=== PATIENT | female | born 1995 | race Two or more races ===

== ENCOUNTER → 2017-04-12 | Outpatient (REF) | payer OTHER | LOC: M SFHCLERA 17:27 | PROVIDERS: ATTEND Nurse Practitioner Family | DX: R30.0 Dysuria (principal) ==

== ENCOUNTER → 2017-04-21 | Outpatient (REF) | payer OTHER | LOC: M SFHCLERA 17:26 | PROVIDERS: ATTEND Physician Assistant | DX: R30.0 Dysuria (principal) ==

== ENCOUNTER → 2017-07-01 | Outpatient (REF) | payer OTHER | LOC: M SFHCLERA 17:40 | DX: J02.9 Acute pharyngitis, unspecified (principal) ==

== ENCOUNTER → 2017-12-19 | Outpatient (REF) | payer OTHER | LOC: M SFHCLERA 09:58 | DX: R30.0 Dysuria (principal) ==

== ENCOUNTER 2017-12-31 16:30 | Day surgery (SDC) | payer OTHER ==
[2017-12-31] MEDS ORDERED: ONDANSETRON 4MG/2ML VIAL (J2405) As Ordered (17:05)
[2017-12-31] MEDS ORDERED: KETOROLAC 60 MG/2 ML VIAL (J1885) As Ordered (17:05)
[2017-12-31] MEDS ORDERED: LIDOCAINE 2% INJ 100 MG/5 ML SDV (FOR ANES.) As Ordered (17:05)
[2017-12-31] MEDS ORDERED: dexameTHASONE 4 MG/ML 1ML VIAL (J1100) As Ordered (17:05)
[2017-12-31] MEDS ORDERED: PROPOFOL 200 MG/20 ML VIAL As Ordered (17:05)
[2017-12-31] MEDS ORDERED: MIDAZOLAM INJ 2 MG/2 ML VIAL (J2250) As Ordered (17:06)
[2017-12-31] MEDS ORDERED: fentaNYL 100 MCG/2 ML INJECTION (J3010) As Ordered ×2 (17:06→19:29)
[2017-12-31] MEDS ORDERED: LR 1,000 ML IV ×2 (17:15→19:45)
[2017-12-31] MEDS ORDERED: ACETAMINOPHEN 650 MG SUPP PR (17:15)
[2017-12-31] MEDS: NS 1,000 ML IV (17:20)
[2017-12-31 17:32] LABS: HEMATOCRIT 35.8 % (36.0-47.0); MEAN CORPUSCULAR HGB CONC 33.5 g/dl (32.0-36.5); MEAN CORPUSCULAR VOLUME 86.5 fl (80.0-96.0); PLATELET COUNT, AUTOMATED 229 10^3/uL (150-450); RED BLOOD COUNT 4.14 10^6/uL (4.00-5.40); RED CELL DISTRIBUTION WIDTH 12.8 % (11.5-14.5)
[2017-12-31 18:16] LABS: ANION GAP 9 MEQ/L (8-16); BLOOD UREA NITROGEN 8 MG/DL (7-18); CALCIUM LEVEL 8.7 MG/DL (8.5-10.1); CARBON DIOXIDE LEVEL 26 MEQ/L (21-32); CHLORIDE LEVEL 105 MEQ/L (98-107); CREATININE FOR GFR 0.46 MG/DL (0.55-1.30); GLUCOSE, FASTING 86 MG/DL (70-100); HCG, SERUM QUANTITATIVE 4519 MIU/ML; POTASSIUM SERUM 3.8 MEQ/L (3.5-5.1); SODIUM LEVEL 140 MEQ/L (136-145)
[2017-12-31] MEDS: VANCOMYCIN HCL 1,000 MG, VIAL MATE ADAPTER 1 EACH in D5W 250 ML IV (18:20)
[2017-12-31] MEDS ORDERED: SUCCINYLCHOLINE 100 MG/5 ML SYRINGE (J0330) As Ordered (18:46)
[2017-12-31] MEDS ORDERED: ROCURONIUM BROMIDE 50 MG/5 ML VIAL As Ordered (18:46)
[2017-12-31] MEDS ORDERED: ePHEDrine SULFATE 25 MG/5 ML(5MG/ML) SYRINGE As Ordered (18:58)
[2017-12-31] MEDS ORDERED: OXYTOCIN INJ 10 UNITS/ML VIAL (J2590) As Ordered (18:58)
[2017-12-31] MEDS: ACETAMINOPHEN 325 MG SUPP As Ordered (19:01)
[2017-12-31] MEDS ORDERED: METOCLOPRAMIDE INJ 10MG/2ML VIAL (J2765) As Ordered (19:02)
[2017-12-31] MEDS ORDERED: ACETAMINOPHEN 500 MG TAB PO (19:30)
[2017-12-31] MEDS ORDERED: PERCOCET 5MG/325MG TAB As Ordered (19:30)
[2017-12-31] MEDS: fentaNYL 100 MCG/2 ML INJECTION (J3010) IV (19:34)
[2017-12-31] MEDS: PERCOCET 5MG/325MG TAB PO (19:45)
== END 2017-12-31 21:15 | disposition home or self-care (01) ==
LOC: M SDC 16:30
DX: O02.1 Missed abortion (principal); Z88.1 Allergy status to other antibiotic agents; Z88.2 Allergy status to sulfonamides
CPT/HCPCS: 59820

== ENCOUNTER 2018-01-04 20:57 | Emergency (ER) | payer OTHER ==
[2018-01-04 23:57] LABS: BASO % 0.5 % (0.0-1.0); EOS # 0.4 10^3/uL (0.0-0.50); EOS % 5.5 % (0.0-3.0); HEMOGLOBIN 13.2 g/dl (12.0-15.5); IMMATURE GRANULOCYTE % 0.3 % (0-3.0); LYMPH # 3.4 10^3/uL (1.5-6.5); MEAN CORPUSCULAR HEMOGLOBIN 29.2 pg (27.0-33.0); MEAN CORPUSCULAR VOLUME 88.5 fl (80.0-96.0); MONO # 0.3 10^3/uL (0.0-0.8); MONO % 4.3 % (0.0-5.0); NEUTROPHILS # 3.6 10^3/uL (1.8-7.7); NEUTROPHILS % 46.4 % (36.0-66.0); PLATELET COUNT, AUTOMATED 260 10^3/uL (150-450); RED BLOOD COUNT 4.52 10^6/uL (4.00-5.40); RED CELL DISTRIBUTION WIDTH 12.6 % (11.5-14.5); WHITE BLOOD COUNT 7.8 10^3/uL (4.0-10.0)
== END 2018-01-05 02:59 | disposition home or self-care (01) ==
LOC: M ED 20:57
DX: N93.9 Abnormal uterine and vaginal bleeding, unspecified (principal); Z98.890 Other specified postprocedural states; Z88.1 Allergy status to other antibiotic agents; Z88.2 Allergy status to sulfonamides; Z88.8 Allergy status to other drugs, medicaments and biological substances
CPT/HCPCS: 76856

== ENCOUNTER → 2018-02-22 | Outpatient (REF) | payer OTHER | LOC: M SFHCLERA 17:38 | DX: R53.81 Other malaise (principal) ==

== ENCOUNTER 2018-03-29 14:47 | Emergency (ER) | payer OTHER ==
[2018-03-29] MEDS ORDERED: ONDANSETRON 4 MG ORAL DISINTEGRATING TAB (Q0162 PER 1MG) PO (16:45)
[2018-03-29] MEDS ORDERED: NAPROXEN 250 MG TAB PO (16:45)
[2018-03-29] MEDS: IBUPROFEN 600 MG TAB PO (16:47)
[2018-03-29] MEDS: METOCLOPRAMIDE 10 MG TAB PO (16:47)
== END 2018-03-29 17:35 | disposition home or self-care (01) ==
LOC: M ED 14:47
DX: S06.0X0A Concussion without loss of consciousness, initial encounter (principal); S16.1XXA Strain of muscle, fascia and tendon at neck level, initial encounter; V43.52XA Car driver injured in collision with other type car in traffic accident, initial encounter; Y92.410 Unspecified street and highway as the place of occurrence of the external cause; Z88.1 Allergy status to other antibiotic agents; Z88.2 Allergy status to sulfonamides; Z88.6 Allergy status to analgesic agent
CPT/HCPCS: 70450

== ENCOUNTER 2019-06-17 18:55 | Outpatient (CLI) | payer OTHER ==
[~2019-06-17] VITALS: Ht 160 cm; Wt 73.1 kg
[~2019-06-17 18:55] MED LIST: REGL10TA6 PO; ROBA500T PO
[2019-06-17 19:14] VITALS: BP 119/74
[2019-06-17 21:48] VITALS: BP 128/68
--- NOTE | 2019-06-17 21:54 | IPNPDOC ---
Text Note Date of Service The patient was seen on 06/17/19. NOTE Triage Note, fall Venus is a 24yo with SIUP at 31w0d who presents to L&D for recommended monitoring s/p fall that occurred at 1600 this evening. She reports she was taking her dog out to walk and slipped, falling backward onto her tailbone. She has had no pain other than soreness at her tailbone that at this point is pretty much completely gone. Has had no vaginal bleeding. Has felt good movement. No regular/painful ctx. No LOF. Vitals wnl, afebrile General: WDWN, gravid female resting comfortably in bed Abdomen: soft, NTTP, no rebound/guarding Extremities: no edema of BLE Cat I FHRT w/bl 120's, +accels, -decels, mod tegan [place]: no regular ctx Assessment: Venus is a 24yo with SIUP at 31w0d who presents to L&D for recommended monitoring s/p fall that occurred at 1600 this evening. Reassuring assessment at 6hr post-event. No e/o placental abruption or pre-term labor. Vitals wnl, benign exam. Plan: -safe for discharge -discussed return precautions at length -keep next scheduled OB appt -tylenol prn any discomfort or warm shower/bath Dr. Nora Gamez MD VS,Siddhartha, I+O VSSiddhartha, I+O Vital Signs Date Time Temp Pulse Resp B/P (MAP) Pulse Ox O2 Delivery O2 Flow Rate FiO2 06/17/19 19:14 98.4 100 119/74 (89) Nora Gamez MD Jun 17, 2019 21:54
== END 2019-06-17 21:55 | disposition home or self-care (01) ==
LOC: M LDO 18:55
PROVIDERS: ATTEND Obstetrics & Gynecology
DX: O9A.213 Injury, poisoning and certain other consequences of external causes complicating pregnancy, third trimester (principal); W01.0XXA Fall on same level from slipping, tripping and stumbling without subsequent striking against object, initial encounter; Z3A.31 31 weeks gestation of pregnancy
CPT/HCPCS: 59025; G0378; G0463

== ENCOUNTER 2019-08-09 16:30 | Inpatient (IN) | payer OTHER ==
[~2019-08-09] VITALS: Ht 160 cm; Wt 77.6 kg
[2019-08-09] VITALS (15 sets, daily range): BP systolic 117–143; BP diastolic 55–83
[2019-08-09] MEDS ORDERED: PENICILLIN G POTASSIUM IV 5 MU in D5W MINI-BAG PLUS 100 ML IV STA (17:20)
[2019-08-09] MEDS ORDERED: LACTATED RINGER'S 1000 ML IV STA (17:20)
[2019-08-09] MEDS ORDERED: LR 1,000 ML IV SCH (17:20)
[2019-08-09 17:32] LABS: HEMATOCRIT 31.4 % (36.0-47.0); HEMOGLOBIN 9.8 g/dl (12.0-15.5); MEAN CORPUSCULAR HEMOGLOBIN 25.2 pg (27.0-33.0); MEAN CORPUSCULAR HGB CONC 31.2 g/dl (32.0-36.5); MEAN CORPUSCULAR VOLUME 80.7 fl (80.0-96.0); PLATELET COUNT, AUTOMATED 155 10^3/uL (150-450); RED BLOOD COUNT 3.89 10^6/uL (4.00-5.40)
[2019-08-09] MEDS ORDERED: FENTANYL 2MCG/ML ROPIVACAINE 0.2% IN 0.9% NACL 100ML IVBAG As Ordered ONE ×2 (18:11→18:32)
--- NOTE | 2019-08-09 18:14 | HPEPDOC ---
Obstetrical History & Physical General Date of Admission Aug 09, 2019 at 17:20 History of Present Illness Venus is a 24yo with SIUP at 38w4d by lmp c/w 9wk u/s presenting with leakage of fluid for the past few hours and regular/painful ctx. Ctx started earlier in the morning but over time became regular/painful. She has felt good movement. No vaginal bleeding, but had some bloody mucousy discharge in the afternoon. No f/c/n/v/CP/SOB. 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 Past Medical History Medical History benign Surgical History: Dilatation and Curettage Family History Significant Family History: No pertinent family hx Social History Marital Status: Family situation: Spouse/partner home Psychosocial History: No pertinent psych hx * Smoker: non-smoker Alcohol: Denies Imunizations Tdap status: declined Influenza Status: current Allergies Coded Allergies: cephalexin (Verified Allergy, Mild, RASH, 08/09/19) doxycycline (Verified Allergy, Unknown, 08/09/19) sulfamethoxazole (Verified Allergy, Unknown, 08/09/19) trimethoprim (Verified Allergy, Unknown, 08/09/19) naproxen (Verified Adverse Reaction, Intermediate, THROAT BLOOM, 08/09/19) ondansetron (Verified Adverse Reaction, Intermediate, THROAT BLOOM, 08/09/19) Medications Scheduled PRN Methocarbamol (Robaxin) 500 Mg Tab, 2 TAB PO Q6H PRN for PAIN Metoclopramide HCl (Reglan) 10 Mg Tab, 10 MG PO Q6H PRN for NAUSEA Physical Examination Physical Examination GENERAL: Alert and oriented times three. ABDOMEN: Gravid and non-tender to touch. FETUS: Is vertex (VTX) by sterile vaginal examination (SVE) EXTREMITIES: No edema BLE Grossly ruptured on SCE, clear liquid Laboratory Data 24H LABS Laboratory Tests 2 08/09/19 17:19: Nucleated Red Blood Cells % (auto) 0.0 CBC/BMP Laboratory Tests 08/09/19 17:19 Pertinent Laboratoy Data Blood Type: O+ RBC Antibody Screen: Negative HIV: Negative Hepatitis B: Negative Hepatitis C: Unknown Rapid Plasma Reagin: Nonreactive Rubella: Immune Varicella: Immune Chlamydia/Gonorrhea: Negative Group B Streptococcus: Positive Glucose Tolerance Test: 161 (95/160/122/73) Anatomy Ultrasound Ultrasound Date: Mar 31, 2019 Placenta Location: Posterior Normal Anatomy: Yes Placenta Previa: No Steroid Therapy Steroid Therapy: No Vaginal Examination Dilation: 6 cm Effacement: 90% Station: -2 Cervical Consistency: Soft Cervical Position: Anterior Presentation: Cephalic presentation Assessment Heart Rate (FHR): 130 Variability: Moderate Accelerations: Positive Decelerations: None (one variable on presentation that resolved with no recurrence) Tocometer Contractions: Yes Frequency: regular Duration: greater than 60 seconds Strength: palpated as strong Assessment/Plan Assessment Venus is a 24yo with SIUP at 38w4d by lmp c/w 9wk u/s with SROM (grossly ruptured, clear, this afternoon sometime) in active labor with SCE 6/90/-2 with ctx q3-4min. Vitals wnl, exam only significant for clear fluid. Cephalic by SCE. Cat I FHRT. course/PMhx significant for: elevated 1hr glucola (161) with normal 3hr GTT, anemia on iron, GBS in early urine Plan Admit and orient. [employer] and consent. Diet: clear liquids Group B Streptococcus (GBS) positive: PCN per protocol (pt states allergy to cephalexin but has tolerated PCN in the past) Labs and intravenous (IV) per unit protocol. Lactated Ringers (LR): Bolus 1000 mL, then at 125 mL/hr. Anticipate normal spontaneous delivery () Candidate for epidural as desired MD Vera Valverde Katrina D MD Aug 09, 2019 18:14
[2019-08-09] MEDS ORDERED: diphenhydrAMINE INJ 50MG/ML VIAL (J1200) IV PRN (19:00)
[2019-08-09] MEDS ORDERED: ePHEDrine SULFATE 25 MG/5 ML(5MG/ML) SYRINGE IV PRN (19:00)
[2019-08-09] MEDS ORDERED: ONDANSETRON 4MG/2ML VIAL (J2405) IV PRN (19:00)
[2019-08-09] MEDS ORDERED: NALOXONE INJ 0.4 MG/1 ML VIAL (J2310) IV PRN (19:00)
[2019-08-09] MEDS ORDERED: EPIDURAL/PCA KEYS XX PRN (19:00)
[2019-08-09] MEDS ORDERED: LACTATED RINGER'S 1000 ML IV PRN (19:00)
[2019-08-09] MEDS ORDERED: EPIDURAL COMMENT XX SCH (19:00)
[2019-08-09] MEDS ORDERED: REFRIGERATOR IV KEYS XX PRN (19:00)
[2019-08-09] MEDS ORDERED: FENTANYL/ROPIVACAINE/NACL BAG 100 ML EPIDURAL SCH (19:00)
--- NOTE | 2019-08-09 19:23 | IPNPDOC ---
Text Note Date of Service The patient was seen on 08/09/19. NOTE Intrapartum Note Pt now comfortable with epidural. Vitals wnl, afebrile Cat I FHRT with bl 130, +accels, -decels, mod tegan [place]: ctx q2-4min SCE: C/C/0 Will do passive descent 1hr then begin pushing Safe to proceed Dr. Nora Gamez MD VS,Siddhartha, I+O VS, Siddhartha, I+O Laboratory Tests 08/09/19 17:19 Vital Signs Date Time Temp Pulse Resp B/P (MAP) Pulse Ox O2 Delivery O2 Flow Rate FiO2 08/09/19 18:40 96 08/09/19 18:38 120/67 (84) 08/09/19 16:54 98.0 Nora Gamez MD Aug 09, 2019 19:23
[2019-08-09] MEDS ORDERED: OXYTOCIN 30 UNITS IN 0.9% NaCl 500ML IV BAG (J2590) As Ordered ONE (21:09)
[2019-08-09] MEDS ORDERED: OXYTOCIN DRIP 30 UNITS in IV 1 EA IV SCH ×2 (21:15→23:30)
[2019-08-09] MEDS ORDERED: PENICILLIN G POTASSIUM IV 2.5 MU in IV 1 EA IV SCH (22:00)
--- NOTE | 2019-08-09 23:28 | DNPDOC ---
[facility] Delivery Note Delivery Note DATE OF DELIVERY: 08/09/2019 PREDELIVERY DIAGNOSIS: 38w4d SROM/labor POST DELIVERY DIAGNOSIS: Delivered. PROCEDURE: Spontaneous vaginal delivery SENIOR LIVING SALES COUNSELOR: Dr. Nora Gamez MD ANESTHESIA: epidural and 1% lidocaine ESTIMATED BLOOD LOSS: 250 mL. FINDINGS: 7 pound 6 ounce (3350g) male infant, Score 9/9, nuchal cord times 1. DELIVERY SUMMARY: Venus is a 24yo [id number] s/p uncomplicated at 2250 on 08/09/2019 after presenting in active labor with SROM at 38w4d. She was 6cm on presentation, received epidural, and progressed to C/C/0, at which point she began pushing. Received PCN for GBS prophylaxis. Infant's head delivered OA, restituted TEE. One tight nuchal cord noted, not able to reduce so delivered through. Right anterior shoulder delivered followed by posterior shoulder and corpus. Nuchal cord reduced. Infant was vigorous with spontaneous cry, placed on maternal abdomen and cord was clamped x2 and cut by FOB after approximately 2 minutes. Infant's nose and mouth were suctioned with bulb suction. Apgars 9/9. With traction on the umbilical cord and uterine massage, placenta delivered spontaneously and intact with 3 vessel centrally inserted cord. IV Pitocin given per protocol. More uterine massage was performed and fundus was then firm at u- 2cm. Slow oozing continued, so gentle sweep of LORENA revealed small bit of retained membranes- once this was removed and bimanual massage performed, bleeding completely stopped. Inspection of perineum and vagina revealed intra- vaginal 1mll and right labial laceration to the hymenal ring repaired in routine fashion with 3-0 vicryl after anesthetizing with 1% lidocaine with excellent reapproximation and total hemostasis noted. All counts correct x2. Mom and infant were doing well when I left the room. MD Vera Valverde Katrina D MD Aug 09, 2019 23:28
[2019-08-09] MEDS ORDERED: MEASLES,MUMPS,RUBELLA VACCINE INJ (MMR-II) (90707) SC SCH (23:30)
[2019-08-09] MEDS ORDERED: ACETAMINOPHEN 500 MG TAB PO PRN (23:30)
[2019-08-09] MEDS ORDERED: DOCUSATE SODIUM 100 MG CAP PO PRN (23:30)
[2019-08-09] MEDS ORDERED: IBUPROFEN 600 MG TAB PO PRN (23:30)
[2019-08-09] MEDS ORDERED: RHOGAM 300 MCG (1500 IU) INJ (J2790) IM SCH (23:30)
[2019-08-09] MEDS ORDERED: ACETAMINOPHEN TAB 650MG DOSE (2X325MG) PO PRN (23:30)
[2019-08-09] MEDS ORDERED: DIBUCAINE 1% OINTMENT 30GM TOP PRN (23:30)
[2019-08-09] MEDS ORDERED: IBUPROFEN 800 MG TAB PO PRN (23:30)
[2019-08-09] MEDS ORDERED: LIDOCAINE 1% MDV 20ML VIAL INFIL ONE (23:45)
[2019-08-10 00:14] VITALS: BP 114/58
[2019-08-10 00:29] VITALS: BP 109/58
[2019-08-10 02:00] VITALS: BP 117/70
[2019-08-10 07:40] VITALS: BP 122/76
--- NOTE | 2019-08-10 09:58 | IPNPDOC ---
Progress Note Date of Service: Aug 10, 2019 Day#: 1 Progress Note PPD 1 SUBJECT: Venus is a 24yo [id number] s/p uncomplicated at 2250 on 08/09/2019 after presenting in active labor with SROM at 38w4d, doing well day # 1. She has been ambulating, voiding spontaneously without issue and tolerating regular diet. Breast feeding well. Reports lochia is like a normal period. No f/c/n/v/CP/SOB. OBJECTIVE: VITAL SIGNS: Within normal limits, afebrile. Alert and oriented times three. Abdomen: Fundus firm at U-2. Soft, NTTP. Extremities: trace edema BLE, no pain with palpation of calves ASSESSMENT: Venus is a 24yo [id number] s/p uncomplicated at 2250 on 08/09/2019 after presenting in active labor with SROM at 38w4d, doing well day # 1. Vitals within normal limits, afebrile, hemodynamically stable with no evidence of infection. PLAN: 1. Routine care, possible discharge tomorrow if meeting all milestones 2. Tylenol and Motrin for pain. 3. Encourage breast feeding and ambulation. 4. Regular diet 5. Undecided on contraception, will readdress at 6wk PP visit Dr. Nora Gamez MD VS, I&O, 24H, Fishbone Vital Signs/I&O Vital Signs Date Time Temp Pulse Resp B/P (MAP) Pulse Ox O2 Delivery O2 Flow Rate FiO2 08/10/19 07:40 98.4 94 18 122/76 (91) 08/10/19 02:00 97 Room Air I&O- Last 24 Hours up to 6 AM 08/10/19 06:00 Output Total 250 ml Balance -250 ml Laboratory Data 24H LABS Laboratory Tests 2 08/09/19 17:19: Nucleated Red Blood Cells % (auto) 0.0 08/09/19 18:30: Serology Scanned Report Hepatitis B Testing CBC/BMP Laboratory Tests 08/09/19 17:19 Nora Gamez MD Aug 10, 2019 09:58
[2019-08-10 12:35] VITALS: BP 110/60
[2019-08-10] MEDS: PRENATAL VITAMINS CHEWABLE TABLET PO SCH (12:53)
[2019-08-10 18:00] VITALS: BP 116/67
[2019-08-10] MEDS ORDERED: DOCU100C16 PO (20:30)
[2019-08-10] MEDS ORDERED: DIBU10OI TOP (20:30)
[2019-08-10] MEDS ORDERED: IBUP80TA PO (20:30)
[2019-08-11 06:00] VITALS: BP 118/66
--- NOTE | 2019-08-11 07:15 | DS.PDOC ---
Discharge Summary General Date of Admission Aug 09, 2019 at 17:20 Date of Discharge 08/11/2019 Discharge Summary PROCEDURES PERFORMED DURING STAY: None ADMITTING DIAGNOSES: 1. term DISCHARGE DIAGNOSES: 1. term 2. Active labor COMPLICATIONS/CHIEF COMPLAINT: Active labor HISTORY OF PRESENT ILLNESS: see H&P HOSPITAL COURSE: Patient admitted for active labor. Bleeding like menses. Tolerating diet. Passing flatus. Able to ambulate. Pain tolerable with pain medications. Mostly from sutures. Urinating without difficulty. DISCHARGE MEDICATIONS: Please see below. ALLERGIES: Please see below. PHYSICAL EXAMINATION ON DISCHARGE: VITAL SIGNS: Please see below. GENERAL: No acute distress HEENT: MMM BREAST: Nontender, no erythema CARDIOVASCULAR EXAMINATION: RRR RESPIRATORY EXAMINATION: Bilaterally clear ABDOMINAL EXAMINATION: Soft, appropriate tenderness, nondistended, fundus -2 EXTREMITIES: no edema, nontender LABORATORY DATA: Please see below. IMAGING: none PROGNOSIS: Good ACTIVITY: Pelvic rest. DIET: Regular DISCHARGE PLAN: Home DISPOSITION: Good. DISCHARGE INSTRUCTIONS: 1. See attached. ITEMS TO FOLLOWUP ON ON OUTPATIENT: 1. 6wks in clinic. DISCHARGE CONDITION: Stable. TIME SPENT ON DISCHARGE: Greater than 10 minutes. Vital Signs/I&Os Vital Signs Date Time Temp Pulse Resp B/P (MAP) Pulse Ox O2 Delivery O2 Flow Rate FiO2 08/10/19 18:00 98.0 91 18 116/67 (83) 08/10/19 12:35 97 Room Air I&O- Last 24 Hours up to 6 AM 08/10/19 06:00 Output Total 250 ml Balance -250 ml Discharge Medications Scheduled PRN Dibucaine (Dibucaine) 28 Gm Oint...g., 0 DOSE TOP Q4HP PRN for PAIN Docusate Sodium (Docusate Sodium) 100 Mg Capsule, 100 MG PO QHSP PRN for CONSTIPATION Ibuprofen (Ibuprofen) 800 Mg Tablet, 800 MG PO Q8HP PRN for PAIN LEVEL 6-10 Methocarbamol (Robaxin) 500 Mg Tab, 2 TAB PO Q6H PRN for PAIN Metoclopramide HCl (Reglan) 10 Mg Tab, 10 MG PO Q6H PRN for NAUSEA Allergies Coded Allergies: cephalexin (Verified Allergy, Mild, RASH, 08/09/19) doxycycline (Verified Allergy, Unknown, 08/09/19) sulfamethoxazole (Verified Allergy, Unknown, 08/09/19) trimethoprim (Verified Allergy, Unknown, 08/09/19) naproxen (Verified Adverse Reaction, Intermediate, THROAT BLOOM, 08/09/19) ondansetron (Verified Adverse Reaction, Intermediate, THROAT BLOOM, 0) Heide Parker MD Aug 10, 2019 20:40
--- NOTE | 2019-08-11 07:26 | IPNPDOC ---
Progress Note Date of Service: Aug 11, 2019 Day#: 2 Progress Note SUBJECT: Venus is a 24yo [id number] s/p uncomplicated at 2250 on 08/09/2019 after presenting in active labor with SROM at 38w4d, doing well day # 2. She has been ambulating, voiding spontaneously without issue and tolerating regular diet. Breast feeding without issue. Reports lochia is like a normal period. Patient is ambulating well. Reports some cramping with . C/o pain with walking from sutures. OBJECTIVE: VITAL SIGNS: Within normal limits, afebrile. GENERAL: No acute distress HEENT: MMM BREAST: Nontender, no erythema CARDIOVASCULAR EXAMINATION: RRR RESPIRATORY EXAMINATION: Bilaterally clear ABDOMINAL EXAMINATION: Soft, appropriate tenderness, nondistended, fundus -2 PERINEUM: Intact, minimal lochia EXTREMITIES: no edema, nontender ASSESSMENT: 24yo [id number] s/p uncomplicated at 2250 on 08/09/2019 after presenting in active labor with SROM at 38w4d, doing well day # 2. Vitals within normal limits, afebrile, hemodynamically stable with no evidence of infection. PLAN: 1. Discharge to home today. 2. Tylenol and Motrin for pain for sutures. 3. Encourage breast feeding and ambulation. 4. Routine PP visit in 6 weeks in clinic. 5. Discussed return precautions at length. VS, I&O, 24H, Fishbone Vital Signs/I&O Vital Signs Date Time Temp Pulse Resp B/P (MAP) Pulse Ox O2 Delivery O2 Flow Rate FiO2 08/10/19 18:00 98.0 91 18 116/67 (83) 08/10/19 12:35 97 Room Air I&O- Last 24 Hours up to 6 AM 08/10/19 06:00 Output Total 250 ml Balance -250 ml Heide Parker MD Aug 10, 2019 20:33
[2019-08-11] MEDS ORDERED: ADACEL/BOOSTRIX VACCINE (DIPHTH/PERTUSS/ACELL/TETANUS)0.5ML SYR (90715) IM ONE (09:00)
[2019-08-11] MEDS: PRENATAL VITAMINS CHEWABLE TABLET PO SCH (11:03)
== END 2019-08-11 12:50 | disposition home or self-care (01) | DRG 806 ==
LOC: M LDO 16:30 → M LDI 17:20 → M OBS 08-10 01:24
PROVIDERS: ADMIT Obstetrics & Gynecology; ATTEND Obstetrics & Gynecology
PROC: 10E0XZZ Delivery of Products of Conception, External Approach (ICD-10-PCS; principal; 2019-08-09)
PROC: 10D17Z9 Manual Extraction of Products of Conception, Retained, Via Natural or Artificial Opening (ICD-10-PCS; 2019-08-09)
PROC: 0HQ9XZZ Repair Perineum Skin, External Approach (ICD-10-PCS; 2019-08-09)
DX: O69.1XX0 Labor and delivery complicated by cord around neck, with compression, not applicable or unspecified (principal); Z37.0 Single live birth; O72.2 Delayed and secondary postpartum hemorrhage; Z3A.38 38 weeks gestation of pregnancy; O70.0 First degree perineal laceration during delivery; Z88.2 Allergy status to sulfonamides; Z88.8 Allergy status to other drugs, medicaments and biological substances

== ENCOUNTER 2019-08-25 20:05 | Emergency (ER) | payer OTHER ==
[~2019-08-25] VITALS: Ht 160 cm; Wt 69.5 kg
[2019-08-25 20:05] VITALS: BP 140/84
[~2019-08-25 20:05] MED LIST changes: +DIBU10OI TOP; +DOCU100C16 PO; +IBUP80TA PO
[2019-08-25] MEDS ORDERED: PREN1TAB11 PO (20:10)
[2019-08-25] MEDS ORDERED: VITA500C24 PO (20:10)
[2019-08-25] MEDS ORDERED: PIPERACILLIN/TAZOBACTAM SOD 3.375 GM in D5W MINI-BAG PLUS 50 ML IV ONE (20:45)
[2019-08-25 20:52] LABS: BASO % 0.6 % (0.0-1.0); EOS # 0.2 10^3/uL (0.0-0.5); EOS % 3.6 % (0.0-3.0); HEMATOCRIT 37.1 % (36.0-47.0); HEMOGLOBIN 11.5 g/dl (12.0-15.5); LYMPH # 1.4 10^3/uL (1.5-5.0); LYMPH % 21.7 % (24.0-44.0); MEAN CORPUSCULAR HEMOGLOBIN 25.4 pg (27.0-33.0); MEAN CORPUSCULAR VOLUME 82.1 fl (80.0-96.0); MONO # 0.5 10^3/uL (0.0-0.8); MONO % 7.3 % (0.0-5.0); NEUTROPHILS # 4.2 10^3/uL (1.5-8.5); NEUTROPHILS % 66.5 % (36.0-66.0); PLATELET COUNT, AUTOMATED 261 10^3/uL (150-450); RED BLOOD COUNT 4.52 10^6/uL (4.00-5.40); WHITE BLOOD COUNT 6.3 10^3/uL (4.0-10.0)
[2019-08-25 21:25] LABS: ALBUMIN 3.5 GM/DL (3.2-5.2); BILIRUBIN,DIRECT 0.1 MG/DL (0.0-0.2); BILIRUBIN,TOTAL 0.2 MG/DL (0.2-1.0); TOTAL PROTEIN 7.4 GM/DL (6.4-8.2)
[2019-08-25] MEDS ORDERED: AUGM875T28 PO (21:54)
== END 2019-08-25 22:08 | disposition home or self-care (01) ==
LOC: M ED 20:05
DX: N80.9 Endometriosis, unspecified (principal); Z88.1 Allergy status to other antibiotic agents; Z88.2 Allergy status to sulfonamides; Z88.8 Allergy status to other drugs, medicaments and biological substances
CPT/HCPCS: 80047; 80076; 81001; 83605; 83690; 85025; 87040; 87086; 96365; 99283; J2543